=== PATIENT | male | born 1975 | race Caucasian/White ===

== ENCOUNTER 2019-01-26 11:08 | Inpatient (IN) | payer BC, OTHER ==
[~2019-01-26] VITALS: Ht 180.3 cm; Wt 114.5 kg
[2019-01-26] VITALS (30 sets, daily range): BP systolic 89–130; BP diastolic 45–100
[2019-01-26] MEDS ORDERED: ADENOSINE 6 MG/2 ML (ADENOCARD) VIAL IV ONE ×4 (11:21→11:45)
[2019-01-26] MEDS ORDERED: NS (IVPB) 0 ML ONE (11:26)
[2019-01-26] MEDS ORDERED: DILTIAZEM 125 MG/25 ML IV (CARDIZEM) IV ONE (11:26)
[2019-01-26] MEDS ORDERED: DILTIAZEM 25 MG/5 ML INJ (CARDIZEM) VIAL ONE (11:26)
[2019-01-26 11:41] LABS: BASOPHILS % (AUTO) 0 % (0-10); EOSINOPHILS # (AUTO) 0.1 10^3/uL (0.0-0.3); EOSINOPHILS % (AUTO) 1 % (0-10); HEMATOCRIT 45 % (40-54); LYMPHOCYTES # (AUTO) 3.6 X 10^3 (1.0-4.0); LYMPHOCYTES % (AUTO) 38 % (12-44); MEAN CORPUSCULAR HEMOGLOBIN 31 PG (25-34); MEAN CORPUSCULAR HGB CONC 36 G/DL (32-36); MEAN CORPUSCULAR VOLUME 87 FL (80-99); MONOCYTES # (AUTO) 1.3 X 10^3 (0.0-1.0); MONOCYTES % (AUTO) 13 % (0-12); NEUTROPHILS # (AUTO) 4.6 X 10^3 (1.8-7.8); NEUTROPHILS % (AUTO) 48 % (42-75); PLATELET COUNT 332 10^3/uL (130-400); RED CELL DISTRIBUTION WIDTH 12.5 % (10.0-14.5); WHITE BLOOD COUNT 9.5 10^3/uL (4.3-11.0)
[2019-01-26] MEDS ORDERED: NS IV 1000 ML 1,000 ML IV ONE (11:41)
[2019-01-26 11:43] LABS: INR 0.9 (0.8-1.4); PROTHROMBIN TIME PATIENT 12.1 SEC (12.2-14.7)
[2019-01-26] MEDS ORDERED: DILTIAZEM 125 MG/NS 100 ML IV SCH ×2 (11:45)
[2019-01-26] MEDS ORDERED: DILTIAZEM 25 MG/5 ML INJ (CARDIZEM) VIAL IV ONE (11:45)
[2019-01-26] MEDS ORDERED: DILTIAZEM 25 MG/5 ML INJ (CARDIZEM) VIAL IVP ONE (11:45)
[2019-01-26] MEDS ORDERED: DILTIAZEM INJECTION 125 MG in NS (IVPB) 100 ML IV SCH (11:45)
[2019-01-26 11:56] LABS: ALANINE AMINOTRANSFERASE 66 U/L (0-55); ALBUMIN 4.8 GM/DL (3.2-4.5); ALKALINE PHOSPHATASE 84 U/L (40-136); BILIRUBIN,TOTAL 1.1 MG/DL (0.1-1.0); BUN/CREATININE RATIO 11; CALCIUM 9.5 MG/DL (8.5-10.1); CARBON DIOXIDE 22 MMOL/L (21-32); CHLORIDE 106 MMOL/L (98-107); CREATININE SERUM 0.97 MG/DL (0.60-1.30); GFR ESTIMATED > 60; GLUCOSE 90 MG/DL (70-105); MAGNESIUM 2.4 MG/DL (1.8-2.4); POTASSIUM 3.7 MMOL/L (3.6-5.0); SODIUM 141 MMOL/L (135-145); TOTAL PROTEIN 7.2 GM/DL (6.4-8.2)
--- NOTE | 2019-01-26 11:57 | Diagnostic Imaging Report ---
Indication: Dizziness. Time of exam: 11:50 AM No prior studies are available for comparison. The heart size is normal. The pulmonary vascularity is unremarkable. The lungs are clear. No infiltrate, effusion or pneumothorax is detected. Impression: No acute cardiopulmonary process is detected. Dictated by: Dictated on workstation # [id number]
--- NOTE | 2019-01-26 12:00 | NUR ---
Cardizem titrated to 15 ml/hr per Dr. Nazario. Pt's HR approxiately 157 at this time.
[2019-01-26 12:05] LABS: MYOGLOBIN SERUM 64.2 NG/ML (10.0-92.0)
--- NOTE | 2019-01-26 12:34 | NUR ---
cardizem titrated to 20 ml/hr per Fransico Phelps.
--- NOTE | 2019-01-26 13:05 | ED Cardiac General ---
History of Present Illness General Chief Complaint: Dizziness/Syncope Stated Complaint: DIZZY, COLD SWEAT, LIGHT HEADED Nursing Triage Note: Ambulatory to rm 5. Pt c/o feeling dizzy and lightheaded for approximately 1.5 hrs [employer]. Pt also reports feeling dizzy and lightheaded when bending over for the past month. Upon hooking pt up to monitor pt's pulse was 206. Dr. Nazario in room. Source: patient, family Exam Limitations: no limitations History of Present Illness Date Seen by Provider: Jan 26, 2019 Time Seen by Provider: 11:15 Initial Comments This 43-year-old gentleman presents to the emergency room after having about an hour and a half of lightheadedness, shortness of breath, and tachycardia. He reports prior episodes of this that were brief and less intense. He was noted to have extreme tachycardia on the monitor during assessment. Heart rate was running about 100-200. He has no history of arrhythmia. Attempts at Valsalva did not improve his heart rate. He is a patient of the [facility] in [facility]. He also has had gastric bypass with Dr. Chavez. Allergies and Home Medications Allergies Uncoded Allergies: NSAIDS (Allergy, Unknown, 01/26/19) Pt reports being unable to take due to gastric bypass surgery Patient Home Medication List Home Medication List Reviewed: Yes Review of Systems Review of Systems Constitutional: no symptoms reported EENTM: No Symptoms Reported Respiratory: See HPI Cardiovascular: See HPI Gastrointestinal: No Symptoms Reported Genitourinary: No Symptoms Reported Musculoskeletal: no symptoms reported Skin: no symptoms reported Psychiatric/Neurological: No Symptoms Reported Endocrine: No Symptoms Reported Hematologic/Lymphatic: No Symptoms Reported Past Ngxhwvo-Meurop-Qsqott Hx Past Med/Social Hx: Reviewed and Corrections made Patient Social History Alcohol Use: Occasionally Uses Recreational Drug Use: No 2nd Hand Smoke Exposure: No Recent Foreign Travel: No Contact w/Someone Who Travel: No Recent Infectious Disease Expo: No Recent Hopitalizations: No Physical Abuse: No Sexual Abuse: No Seasonal Allergies Seasonal Allergies: No Past Medical History Surgeries: Yes (knee, gastric bypass) Abdominal (gastric bypass), Orthopedic Respiratory: No Cardiac: Yes Hypertension Neurological: No Reproductive Disorders: No Genitourinary: No Gastrointestinal: Yes (gastric bypass) Musculoskeletal: No Endocrine: No HEENT: No Cancer: No Psychosocial: Yes Anxiety, Depression Integumentary: No Blood Disorders: No Physical Exam Vital Signs Vital Signs - First Documented 01/26/19 11:17 Temp 96.1 Pulse 206 Resp 20 B/P (MAP) 130/51 (77) Pulse Ox 100 O2 Delivery Room Air O2 Flow Rate 2.00 Capillary Refill : Less Than 3 Seconds Height, Weight, BMI Height: 5'11.00" Weight: 250lbs. oz. 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 Norm as Tested Skin: Cool (and clammy), Pallor Progress/Results/Core Measures Results/Orders Lab Results Laboratory Tests Test 01/26/19 11:23 Range/Units White Blood Count 9.5 4.3-11.0 10^3/uL Red Blood Count 5.19 4.35-5.85 10^6/uL Hemoglobin 16.0 13.3-17.7 G/DL Hematocrit 45 40-54 % Mean Corpuscular Volume 87 80-99 FL Mean Corpuscular Hemoglobin 31 25-34 PG Mean Corpuscular Hemoglobin Concent 36 32-36 G/DL Red Cell Distribution Width 12.5 10.0-14.5 % Platelet Count 332 130-400 10^3/uL Mean Platelet Volume 10.0 7.4-10.4 FL Neutrophils (%) (Auto) 48 42-75 % Lymphocytes (%) (Auto) 38 12-44 % Monocytes (%) (Auto) 13 H 0-12 % Eosinophils (%) (Auto) 1 0-10 % Basophils (%) (Auto) 0 0-10 % Neutrophils # (Auto) 4.6 1.8-7.8 X 10^3 Lymphocytes # (Auto) 3.6 1.0-4.0 X 10^3 Monocytes # (Auto) 1.3 H 0.0-1.0 X 10^3 Eosinophils # (Auto) 0.1 0.0-0.3 10^3/uL Basophils # (Auto) 0.0 0.0-0.1 10^3/uL Prothrombin Time 12.1 L 12.2-14.7 SEC INR Comment 0.9 0.8-1.4 Activated Partial Thromboplast Time 29 24-35 SEC Sodium Level 141 135-145 MMOL/L Potassium Level 3.7 3.6-5.0 MMOL/L Chloride Level 106 98-107 MMOL/L Carbon Dioxide Level 22 21-32 MMOL/L Anion Gap 13 5-14 MMOL/L Blood Urea Nitrogen 11 7-18 MG/DL Creatinine 0.97 0.60-1.30 MG/DL Estimat Glomerular Filtration Rate > 60 BUN/Creatinine Ratio 11 Glucose Level 90 70-105 MG/DL Calcium Level 9.5 8.5-10.1 MG/DL Corrected Calcium 8.5-10.1 MG/DL Magnesium Level 2.4 1.8-2.4 MG/DL Total Bilirubin 1.1 H 0.1-1.0 MG/DL Aspartate Amino Transf (AST/SGOT) 38 H 5-34 U/L Alanine Aminotransferase (ALT/SGPT) 66 H 0-55 U/L Alkaline Phosphatase 84 40-136 U/L Myoglobin 64.2 10.0-92.0 NG/ML Troponin I < 0.028 <0.028 NG/ML Total Protein 7.2 6.4-8.2 GM/DL Albumin 4.8 H 3.2-4.5 GM/DL TSH [place] Testing 1.94 0.35-4.94 UIU/ML Micro Results Microbiology 01/26/19 Influenza Types A,B Antigen (RUBIA) - Final, Complete My Orders Orders - MAURILIO NAZARIO MD Influenza A And B Antigens (01/26/19 11:17) Adenosine Injection (Adenocard Injection (01/26/19 11:21) Adenosine Injection (Adenocard Injection (01/26/19 11:24) Ns (Ivpb) (Sodium Chloride 0.9% Ivpb Bag (01/26/19 11:26) Diltiazem Iv For Drip (Cardizem Iv For D (01/26/19 11:26) Diltiazem Injection (Cardizem Injection) (01/26/19 11:26) Cbc With Automated Diff (01/26/19 11:31) Magnesium (01/26/19 11:31) Chest 1 View, Ap/Pa Only (01/26/19 11:31) Ekg Tracing (01/26/19 11:31) Cardiac Profile 1 (01/26/19 11:31) Comprehensive Metabolic Panel (01/26/19 11:31) Myoglobin Serum (01/26/19 11:31) Protime With Inr (01/26/19 11:31) Partial Thromboplastin Time (01/26/19 11:31) O2 (01/26/19 11:31) Monitor-Rhythm Ecg Trace Only (01/26/19 11:31) Lipid Panel (01/27/19 06:00) Saline Lock/Iv-Start (01/26/19 11:31) Thyroid Analyzer (01/26/19 11:31) Adenosine Injection (Adenocard Injection (01/26/19 11:45) Adenosine Injection (Adenocard Injection (01/26/19 11:45) Ns (Ivpb) (Sodium C... W/Diltiazem Injec (01/26/19 11:45) Diltiazem Injection (Cardizem Injection) (01/26/19 11:45) Ns Iv 1000 Ml (Sodium Chloride 0.9%) (01/26/19 11:41) Apixaban Tablet (Eliquis Tablet) (01/26/19 13:15) Medications Given in ED Current Medications Medications Dose Ordered Sig/Manoj Route Start Time Stop Time Status Last Admin Dose Admin Adenosine 6 mg STK-MED ONCE IV 01/26/19 11:21 01/26/19 11:23 DC 01/26/19 11:23 12 MG Adenosine 6 mg STK-MED ONCE IV 01/26/19 11:24 01/26/19 11:26 DC 01/26/19 11:25 12 MG Apixaban 5 mg ONCE ONCE PO 01/26/19 13:15 01/26/19 13:16 DC 01/26/19 13:18 5 MG Diltiazem HCl 10 mg ONCE ONCE IV 01/26/19 11:45 01/26/19 11:46 DC 01/26/19 11:27 10 MG Sodium Chloride 1,000 ml @ 0 mls/hr Q0M ONCE IV 01/26/19 11:41 01/26/19 11:42 DC 01/26/19 12:05 1,000 MLS/HR Vital Signs/I&O 01/26/19 01/26/19 11:17 11:17 Temp 96.1 Pulse 206 Resp 20 B/P (MAP) 130/51 (77) Pulse Ox 100 100 O2 Delivery Room Air Nasal Cannula O2 Flow Rate 2.00 Blood Pressure Mean: 77 Progress Progress Note #1: Time: 13:16 Progress Note Patient was thought to have SVT given the narrow complex extreme tachycardia with heart rates in the 180-200 range. Valsalva maneuver did not affect his heart rate. Adenosine 12 mg had no effect on his heart rate initially. A repeat dose slowed his heart rate enough to reveal atrial fibrillation. He was then started on a Cardizem drip. He has been titrated up to 20 mg per hour. Heart rate is now fluctuating from the 90s to 130s. He is feeling much better. 1 L of IV fluids was infused. He will receive Eliquis for anticoagulation. Case was discussed with Dr. Rodriguez to requested admission on continued Cardizem drip. He also requested to add an amiodarone bolus and drip. Patient's arrived and brought his medications. She confirms he is still taking lisinopril but recently stopped atenolol. 2-D echocardiogram was also requested. Progress Note #2: Progress Note Dr. Rodriguez personally presented to the emergency room to assess the patient and reviewed EKGs. EKG #1: EKG Time: 11:22 Rate: 207 Comment Narrow complex tachycardia with slight irregularity to it suspicious for SVT or very rapid atrial fibrillation. No ischemic ST changes. EKG #2: EKG Time: 11:25 Rate: 113 Rhythm: A Fib/Flutter ECG Impression: Atrial Fibrillation w/RVR Comment EKG was obtained after administration of adenosine 12 mg. Heart rate slowed to reveal atrial fibrillation with RVR. No overt ischemic changes. Diagnostic Imaging Diagonstic Imaging: Xray Plain Films/CT/US/NM/MRI: chest Comments Chest x-ray viewed by me and report reviewed. See report below: NAME: SABRINA GOODMAN MED REC#: [id number] PT STATUS: REG ER : 1975 PHYSICIAN: MAURILIO NAZARIO MD ADMIT DATE: 01/26/19/ER Draft Date of Exam:01/26/19 CHEST 1 VIEW, AP/PA ONLY Indication: Dizziness. Time of exam: 11:50 AM No prior studies are available for comparison. The heart size is normal. The pulmonary vascularity is unremarkable. The lungs are clear. No infiltrate, effusion or pneumothorax is detected. Impression: No acute cardiopulmonary process is detected. Dictated on workstation # [id number] Dict: 01/26/19 1155 Trans: 01/26/19 1157 CV [id number] Interpreted by: PJ COUGHLIN MD Departure Communication (Admissions) Time/Spoke to Admitting Phy: 13:00 Dr. Cyr Time/Spoke to Consulting Phy: 13:04 Dr. Rodriguez Impression Primary Impression: Atrial fibrillation with RVR Disposition: 07 AGAINST MEDICAL ADVICE Condition: Improved Admissions Decision to Admit Reason: Admit from ER (General) Decision to Admit/Date: Jan 26, 2019 Time/Decision to Admit Time: 11:25 MAURILIO NAZARIO MD Jan 26, 2019 13:04
[2019-01-26] MEDS ORDERED: APIXABAN 5 MG (ELIQUIS) TABLET PO ONE (13:15)
--- NOTE | 2019-01-26 13:19 | NUR ---
Dr. Rodriguez in room with pt at this time.
--- NOTE | 2019-01-26 13:52 | NUR ---
SABRINA GOODMAN admitted to room CU6-1, with an admitting diagnosis of [place] A FIB W/ RVR, on 01/26/19 from ER via CART, accompanied by STAFF.SABRINA GOODMAN introduced to surroundings, call light, bed controls, phone, TV, temperature control, lights, meal times, smoking policy, visitor policy, side rail policy, bathrooms and showers. Patient Rights given to patient in the handbook. SABRINA GOODMAN verbalizes understanding that [facility] is not responsible for the loss or damage to any personal effects or valuables that are kept in the patients posession during their hospitalization. The following Patient Care Plans were discussed with the PT: Discharge Planning, INEFFECTIVE BREATHING PATTERN,KNOWLEDGE DEFICIT, and ANXIETY. SABRINA GOODMAN verbalizes understanding of Interdisciplinary Patient Education. Patient and family were informed about the Rapid Response Team and its purpose.
--- NOTE | 2019-01-26 13:55 | Consultation-Cardiology ---
HPI-Cardiology Cardiology Consultation: Date of Consultation 01/26/19 Date of Admission Attending Physician Sofía Cyr MD Admitting Physician Consulting Physician Chilo RODRIGUEZ MD HPI: Time Seen by a Provider: 13:00 Chief Complaint: Palpitation, near syncope This is a 43-year-old gentleman who has history of sleep apnea, morbid obesity, status post gastric bypass, hypertension who presented with tachycardia, shortness of breath and near syncope. He's had previous episodes however they were not that intense. The patient denies chest pain, lower extremity swelling. He was found to be in narrow complex tachycardia with mild cycle length irregularity. Adenosine 12 mg IV was given which did not terminate the arrhythmia. However the rate slowed down with Cardizem which showed likely atrial fibrillation. Review of Systems-Cardiology Review of Systems Constitutional: As described under HPI; No As described under HPI, No no symptoms reported, No chills, No fever; lightheadedness Eyes: No As described under HPI, No no symptoms reported, No blindness, No blurred vision, No contact lenses, No drainage, No decreased acuity, No foreign body sensation, No pain, No vision change Ears/Nose/Throat: No As described under HPI, No no symptoms reported, No chronic hearing loss, No ear discharge, No ear pain, No nasal drainage, No ulcerations Respiratory: No no symptoms reported; As described under HPI; No As described under HPI, No cough, No orthopnea; shortness of breath; No SOB with excertion Cardiovascular: No no symptoms reported; As described under HPI; No As described under HPI, No chest pain, No edema, No irregular heart rate, No lightheadedness; palpitations Gastrointestinal: No no symptoms reported, No As described under HPI, No abdomen distended, No abdominal pain, No blood streaked bowels, No constipation , No diarrhea, No nausea, No vomiting, No stool coloration changes Genitourinary: No As described under HPI, No burning, No dysuria, No discharge , No frequency, No flank pain, No hematuria, No urgency Skin: No rash, No skin related problems, No ulcerations Psychiatric/Neurological: No anxiety, No depression, No seizure, No focal weakness, No syncope Hematologic: No bleeding abnormalities SBQ-Cafsno-Badphh Hx Patient Social History Alcohol Use: Occasionally Uses Recreational Drug Use: No 2nd Hand Smoke Exposure: No Recent Foreign Travel: No Recent Infectious Disease Expo: No Hospitalization with Isolation: Denies Past Medical History PMH As described under Assessment. Allergies and Home Medications Allergies Uncoded Allergies: NSAIDS (Adverse Reaction, Unknown, 01/26/19) Pt reports being unable to take due to gastric bypass surgery Home Medications Biotin 10 Mg Tablet, 10 MG PO HS, (Reported) Buspirone HCl 7.5 Mg Tablet, 11.25 MG PO BID, (Reported) TAKES 1 & 1/2 (7.5MG) TABLET Cholecalciferol (Vitamin D3) 10,000 Unit Capsule, 10,000 UNIT PO HS, (Reported) Duloxetine HCl 30 Mg Capsule.dr, 30 MG PO BID, (Reported) Lisinopril 20 Mg Tablet, 20 MG PO BID, (Reported) Methylcellulose 500 Mg Tablet, 500 MG PO BID, (Reported) [Mtv W/Probiotic] , 1 TAB PO BID, (Reported) Patient Home Medication List Home Medication List Reviewed: Yes Physical Exam-Cardiology Physical Exam Vital Signs/I&O 01/26/19 01/26/19 01/26/19 01/26/19 11:17 11:17 13:38 13:52 Temp 96.1 96.1 Pulse 206 129 Resp 20 20 B/P (MAP) 130/51 (77) 112/89 (97) Pulse Ox 100 100 98 O2 Delivery Room Air Nasal Cannula Nasal Cannula Room Air O2 Flow Rate 2.00 0 01/26/19 01/26/19 01/26/19 01/26/19 13:55 14:01 14:15 14:30 Temp 97.2 Pulse 123 130 93 Resp 7 13 B/P (MAP) 127/96 (106) 113/85 (94) Pulse Ox 98 99 O2 Delivery Room Air Room Air 01/26/19 01/26/19 01/26/19 01/26/19 14:45 15:00 15:09 15:15 Pulse 100 103 92 Resp 15 14 16 B/P (MAP) 119/77 (91) 130/100 (110) 108/84 (92) Pulse Ox 98 97 98 O2 Delivery Room Air Room Air Room Air Room Air 01/26/19 01/26/19 01/26/19 01/26/19 15:30 15:45 16:00 16:12 Temp 97.1 Pulse 118 93 79 Resp 7 9 16 B/P (MAP) 121/90 (100) 108/69 (82) 110/89 (96) Pulse Ox 97 96 96 O2 Delivery Room Air Room Air Room Air 01/26/19 01/26/19 01/26/19 01/26/19 17:00 18:00 20:00 20:04 Temp 97.5 Pulse 70 71 Resp 12 11 B/P (MAP) 93/66 (75) 101/69 (80) Pulse Ox 95 95 O2 Delivery Room Air Room Air Room Air Room Air Capillary Refill : Less Than 3 Seconds Constitutional: appears stated age, AAO x 3; No apparent distress; well- developed, well-nourished HEENT: PERRL; No discharge; hearing is well preserved, oral hygience is good; No ulceration, No xanthelasmas are seen Neck: No non-tender, No full range of motion, No supple, No normal inspection, No carotid bruit, No limited range of motion, No lymphadenopathy (R), No lymphadenopathy (L), No tender lateral, No tender midline, No thyromegaly, No other; carotid pulses are 2 + bilaterally; No with good upstrokes Respiratory: No accessory muscle use, No respiratory distress, No chest tender , No chest expansion is symmetric; chest is bilaterally symmetric; No lungs clear to percussion; lungs clear to auscultation; No crackles, No rhonchi, No rales, No stridor, No wheezing, No pleural rub, No other Cardiovascular: No regular rate-rhythm; irregularly irregular; No extra beats, No parasternal heave is noted, No JVD, No edema, No bradycardia; tachycardia; No point of maximal impulse, No cardiac thrills are palpable; S1 and S2; No gallop/S3, No gallop/S4, No diastolic murmur, No systolic murmur, No friction rub, No click, No other Gastrointestinal: No tender, No soft, No round, No distended, No pulsatile mass , No organomegaly, No guarding, No rebound, No tenderness, No hernia, No mass, No audible bowel sounds, No abnormal bowel sounds, No abdominal bruits, No spleenomegaly, No other Rectal: deferred Extremities: No normal range of motion, No non-tender, No normal inspection, No pedal edema, No calf tenderness, No normal capillary refill, No pelvis stable , No calf tenderness, No inflammation, No pedal edema, No slow capillary refill , No swelling, No other, No abrasion, No clubbing, No cyanosis, No ecchymosis, No laceration, No no lower extremity edema bilateral, No significant edema, No tenderness, No wound Neurologic/Psychiatric: no motor/sensory deficits, alert, normal mood/affect, oriented x 3, power is 5/5 both on sides Skin: No rash, No ulcerations Data Review Labs Laboratory Tests 01/26/19 11:23: White Blood Count 9.5, Red Blood Count 5.19, Hemoglobin 16.0, Hematocrit 45, Mean Corpuscular Volume 87, Mean Corpuscular Hemoglobin 31, Mean Corpuscular Hemoglobin Concent 36, Red Cell Distribution Width 12.5, Platelet Count 332, Mean Platelet Volume 10.0, Neutrophils (%) (Auto) 48, Lymphocytes (%) (Auto) 38 , Monocytes (%) (Auto) 13H, Eosinophils (%) (Auto) 1, Basophils (%) (Auto) 0, Neutrophils # (Auto) 4.6, Lymphocytes # (Auto) 3.6, Monocytes # (Auto) 1.3H, Eosinophils # (Auto) 0.1, Basophils # (Auto) 0.0, Prothrombin Time 12.1L, INR Comment 0.9, Activated Partial Thromboplast Time 29, Sodium Level 141, Potassium Level 3.7, Chloride Level 106, Carbon Dioxide Level 22, Anion Gap 13, Blood Urea Nitrogen 11, Creatinine 0.97, Estimat Glomerular Filtration Rate > 60 , BUN/Creatinine Ratio 11, Glucose Level 90, Calcium Level 9.5, Corrected Calcium , Magnesium Level 2.4, Total Bilirubin 1.1H, Aspartate Amino Transf (AST /SGOT) 38H, Alanine Aminotransferase (ALT/SGPT) 66H, Alkaline Phosphatase 84, Myoglobin 64.2, Troponin I < 0.028, Total Protein 7.2, Albumin 4.8H, TSH [place] Testing 1.94 Microbiology 01/26/19 Influenza Types A,B Antigen (RUBIA) - Final, Complete ECG Impression ECG Initial ECG Impression: Atrial Fibrillation w/RVR A/P-Cardiology Assessment/Admission Diagnosis Atrial fibrillation with rapid ventricular rate, Narrow complex tachycardia, Hypertension, Sleep apnea, Elevated LFTs Plan Atrial fibrillation with rapid ventricular rate, Cardizem infusion, amiodarone infusion. Start Eliquis for oral anti-coagulation. I discussed at length with the patient and family. If the patient does not convert with amiodarone, the we 'll schedule transesophageal echocardiogram assisted cardioversion tomorrow. Narrow complex tachycardia, initial EKG showed narrow complex tachycardia with significantly elevated heart rate. Mild cycle length irregularity. Differentials included PSVT. No response to adenosine however the patient converted to atrial fibrillation on Cardizem. It is unclear whether the SVT degenerated into atrial fibrillation or it was atrial fibrillation all along which became slower with Cardizem. Hypertension, continue lisinopril, Sleep apnea, Elevated LFTs Thank you for your consultation. Please call me if you have any questions. Pebbles Rodriguez MD, FACP, FACC, FSCAI, FHRS, CCDS Interventional Cardiology Cardiac Electrophysiology Vascular Medicine and Endovascular Interventions Chilo RODRIGUEZ MD Jan 26, 2019 13:55
[2019-01-26] MEDS ORDERED: AMIODARONE 150 MG/D5W 100 ML BOLUS IV ONE ×2 (14:00)
[2019-01-26] MEDS ORDERED: DULO30CA48 PO (14:18)
[2019-01-26] MEDS ORDERED: BUSP7.5T5 PO (14:18)
[2019-01-26] MEDS ORDERED: CHROMIUM PO (14:18)
[2019-01-26] MEDS ORDERED: CHOL-6 PO (14:18)
[2019-01-26] MEDS ORDERED: LISI-552 PO (14:18)
[2019-01-26] MEDS ORDERED: BIOT10TA PO (14:18)
[2019-01-26] MEDS ORDERED: PROBIOTIC PO (14:21)
[2019-01-26] MEDS ORDERED: [UNRECOGNIZED DRUG - OTHER] PO (14:21)
[2019-01-26] MEDS ORDERED: METH500T5 PO (14:21)
[2019-01-26] MEDS: NS IV 1000 ML 1,000 ML IV SCH ×2 (14:25→22:32)
--- NOTE | 2019-01-26 14:25 | NUR ---
SPOKE WITH PATIENT AND FAMILY ABOUT HIS MEDICATIONS. THEY HAD THE BOTTLES WITH THEM WITH THE EXCEPTION OF CITRUCEL AND A MTV WITH A PROBIOTIC FOR GASTRIC BYPASS PATIENTS. HIS BUSPAR IS PRESCRIBED 2 TABS TID HOWEVER THEY STATE HE ONLY TAKES 1.5 TABS BID. IN ADDITION TO WHAT IS SHOWN ON THE EXT MED HX THEY HAD A BOTTLE OF DULOXETINE 30MG BID #60 FILLED 01-10-19 FROM [facility]. OTC MEDS INCLUDE: VITAMIN D3 10,000 UNITS HS BIOTIN 10MG HS CITRUCEL BID MTV W/ PROBIOTIC FOR GASTRIC BYPASS PATIENTS BID THEY HAD A BOTTLE OF CHROMIUM IN THE BAG HOWEVER THEY STATE THAT IS NOT ONE OF THE MEDICATIONS THE PATIENT IS TAKING AND IS IN THERE BY MISTAKE.
--- NOTE | 2019-01-26 14:27 | NUR ---
pharmacy called for med rec
[2019-01-26] MEDS: DILTIAZEM 125 MG/NS 100 ML IV SCH ×4 (14:28→17:25)
[2019-01-26] MEDS: AMIODARONE 450 MG/250 ML D5W EXCEL IV SCH ×4 (15:13→23:02)
--- NOTE | 2019-01-26 15:25 | History & Physical-Hospitalist ---
History of Present Illness HPI/Chief Complaint Pt is a 43yoCM with a PMH of HTN and morbid obesity s/p gastric bypass who presented to the ER due to lightheadedness and SOB. He states he was at work and suddenly felt his heart racing and thought he was going to pass out. He attempted to valsalva to help prevent him from passing out. He finished his job despite this and then presented to the ER for evaluation. He denies any history of heart problems, palpitations, thyroid disease, or arrhythmias. On arrival to the ER he was found to have a heart rate in the 180s. He was given adenosine that revealed underlying atrial fibrillation. He was started on a cardizem gtt with improvement in rate. He states with rate control his symptoms have resolved. Source: patient, RN/MD Exam Limitations: no limitations Date Seen 01/26/19 Time Seen by a Provider: 15:17 Attending Physician Ray Cyr MD PCP Referring Physician Date of Admission Jan 26, 2019 at 13:19 Home Medications & Allergies Home Medications Reviewed patient Home Medication Reconciliation performed by pharmacy medication reconciliations marine engineering technicians and/or nursing. Patients Allergies have been reviewed. Allergies Allergies Uncoded Allergies NSAIDS ( Allergy, Unknown, 01/26/19) Pt reports being unable to take due to gastric bypass surgery Past Zivudry-Axtxke-Dbfdlb Hx Past Med/Social Hx: Reviewed and Corrections made Patient Social History Marrital Status: Employed/Student: employed Alcohol Use: Occasionally Uses Recreational Drug Use: No Smoking Status: Never a Smoker 2nd Hand Smoke Exposure: No Recent Foreign Travel: No Contact w/other who traveled: No Recent Hopitalizations: No Recent Infectious Disease Expo: No Immunizations Up To Date Date of Influenza Vaccine: Nov 16, 2018 Seasonal Allergies Seasonal Allergies: No Past Medical History Surgeries: Abdominal (gastric bypass), Orthopedic Cardiac: Hypertension Reproductive: No Psychosocial: Anxiety, Depression History of Blood Disorders: No Family History Reviewed Nursing Family Hx Cardiovascular disease 19 MOTHER grandfather Diabetes mellitus 19 MOTHER Heart Disease Review of Systems Constitutional: No chills; dizziness; No fever Respiratory: No dyspnea on exertion, No orthopnea; short of breath Cardiovascular: No edema, No Hx of Intervention; palpitations; No syncope, No vascular heart diseas Gastrointestinal: No abdominal pain, No constipation, No diarrhea, No nausea, No vomiting Genitourinary: No dysuria, No frequency, No incontinence Musculoskeletal: no symptoms reported Skin: no symptoms reported Psychiatric/Neurological: No Symptoms Reported Physical Exam Physical Exam Vital Signs Vital Signs - First Documented 01/26/19 11:17 Temp 96.1 Pulse 206 Resp 20 B/P (MAP) 130/51 (77) Pulse Ox 100 O2 Delivery Room Air O2 Flow Rate 2.00 Capillary Refill : Less Than 3 Seconds Height, Weight, BMI Height: 5'11.00" Weight: 252lbs. 7.0oz. 114.159612ay; 35.2 BMI Method:Stated General Appearance: No Apparent Distress Eyes: Right Eye Normal Inspection, Right Eye PERRL HEENT: PERRL/EOMI, Normal ENT Inspection, Moist Mucous Membranes Neck: Non Tender, Supple Respiratory: Lungs Clear, No Accessory Muscle Use, No Respiratory Distress Cardiovascular: No Edema, No JVD, No Murmur, Normal Peripheral Pulses, Irregularly Irregular Gastrointestinal: Normal Bowel Sounds, No Pulsatile Mass, Non Tender, Soft Back: Normal Inspection, No CVA Tenderness, No Vertebral Tenderness Extremity: Normal Inspection, Normal Range of Motion, Non Tender, No Calf Tenderness, No Pedal Edema Neurologic/Psychiatric: Alert, Oriented x3, Normal Mood/Affect Skin: Normal Color, Warm/Dry Lymphatic: No Adenopathy Results Results/Procedures Labs Laboratory Tests 01/26/19 11:23 Patient resulted labs reviewed. Imaging: Reviewed Imaging Report Assessment/Plan Admission Diagnosis Atrial Fibrillation with RVR Admission Status: Inpatient Order (span 2 midnights) Reason for Inpatient Admission: On cardizem gtt Diagnosis/Problems Diagnosis/Problems (1) Atrial fibrillation with RVR Status: Acute Assessment & Plan: Currently on Cardizem gtt Echo ordered TSH normal Cardiology consulted, appreciate recs Eliquis ordered for anticoagulation for stroke prophylaxis CHADSVASC is 1- will discussed with cardiology about ASA vs Eliquis (2) Essential (primary) hypertension Assessment & Plan: Well controlled on current meds Clinical Quality Measures DVT/VTE Risk/Contraindication: Risk Factor Score Per Nursin RFS Level Per Nursing on Admit: 2=Moderate RAY CYR MD Jan 26, 2019 15:24
[2019-01-26] MEDS ORDERED: PATIENT MAY USE OWN MED,SINGLE MED PO SCH (16:45)
[2019-01-26] MEDS: DULoxetine 30 MG (CYMBALTA) CAP PO SCH (21:52)
[2019-01-26] MEDS: APIXABAN 5 MG (ELIQUIS) TABLET PO SCH (21:52)
[2019-01-26] MEDS: BUSPIRONE HCL 7.5 MG PO SCH (21:53)
[2019-01-27] VITALS (43 sets, daily range): BP systolic 87–132; BP diastolic 48–92
[2019-01-27] MEDS: NS IV 1000 ML 1,000 ML IV SCH ×2 (03:00→07:23)
[2019-01-27 03:57] LABS: BASOPHILS % (AUTO) 0 % (0-10); EOSINOPHILS # (AUTO) 0.1 10^3/uL (0.0-0.3); EOSINOPHILS % (AUTO) 2 % (0-10); HEMATOCRIT 42 % (40-54); HEMOGLOBIN 14.4 G/DL (13.3-17.7); LYMPHOCYTES # (AUTO) 2.4 X 10^3 (1.0-4.0); LYMPHOCYTES % (AUTO) 33 % (12-44); MEAN CORPUSCULAR HEMOGLOBIN 30 PG (25-34); MEAN CORPUSCULAR HGB CONC 34 G/DL (32-36); MEAN CORPUSCULAR VOLUME 88 FL (80-99); MEAN PLATELET VOLUME 10.3 FL (7.4-10.4); MONOCYTES # (AUTO) 0.8 X 10^3 (0.0-1.0); MONOCYTES % (AUTO) 11 % (0-12); NEUTROPHILS # (AUTO) 3.8 X 10^3 (1.8-7.8); NEUTROPHILS % (AUTO) 53 % (42-75); PLATELET COUNT 252 10^3/uL (130-400); RED CELL DISTRIBUTION WIDTH 12.4 % (10.0-14.5); WHITE BLOOD COUNT 7.1 10^3/uL (4.3-11.0)
[2019-01-27 04:26] LABS: BUN/CREATININE RATIO 11; CALCIUM 8.6 MG/DL (8.5-10.1); CARBON DIOXIDE 23 MMOL/L (21-32); CHLORIDE 107 MMOL/L (98-107); CHOLESTEROL 160 MG/DL (< 200); CREATININE SERUM 0.81 MG/DL (0.60-1.30); GFR ESTIMATED > 60; GLUCOSE 98 MG/DL (70-105); HDL CHOLESTEROL 42 MG/DL (40-60); MAGNESIUM 2.2 MG/DL (1.8-2.4); PHOSPHORUS 3.9 MG/DL (2.3-4.7); POTASSIUM 3.9 MMOL/L (3.6-5.0); SODIUM 140 MMOL/L (135-145); TRIGLYCERIDES 99 MG/DL (<150); VLDL CHOLESTEROL 20 MG/DL (5-40)
[2019-01-27] MEDS ORDERED: MAGNESIUM 1 GM/100 ML IVPB 100 ML IV SCH (06:00)
[2019-01-27] MEDS ORDERED: KCL 20 MEQ TAB (K-DUR) PO SCH (06:00)
[2019-01-27] MEDS ORDERED: POTASSIUM CL 10MEQ/50ML IVPB 50 ML IV SCH (06:00)
--- NOTE | 2019-01-27 07:11 | Pulmonary Consultation ---
History of Present Illness History of Present Illness Date of Consultation 01/27/19 07:04 Time Seen by Provider: 07:08 Date of Admission History of Present Illness 43yo with hx of HTN, morbid obesity s/p bariatric surgery, RAMOS presented to ED secondary to worsening SOB, palpitations, and presyncope. In the ED he was found to have Afib RVR with rate of 180's. Pt quit using his CPAP after loosing wt. He did not have a repeat PSG prior to discontinuation of CPAP. Allergies and Home Medications Allergies Uncoded Allergies: NSAIDS (Adverse Reaction, Unknown, 01/26/19) Pt reports being unable to take due to gastric bypass surgery Home Medications Biotin 10 Mg Tablet, 10 MG PO HS, (Reported) Buspirone HCl 7.5 Mg Tablet, 11.25 MG PO BID, (Reported) TAKES 1 & 1/2 (7.5MG) TABLET Cholecalciferol (Vitamin D3) 10,000 Unit Capsule, 10,000 UNIT PO HS, (Reported) Duloxetine HCl 30 Mg Capsule.dr, 30 MG PO BID, (Reported) Lisinopril 20 Mg Tablet, 20 MG PO BID, (Reported) Methylcellulose 500 Mg Tablet, 500 MG PO BID, (Reported) [Mtv W/Probiotic] , 1 TAB PO BID, (Reported) Past Grjbypp-Ubcnnv-Xlwqxw Hx Past Med/Social Hx: Reviewed and Corrections made Patient Social History Alcohol Use: Occasionally Uses Recreational Drug Use: No Smoking Status: Never a Smoker 2nd Hand Smoke Exposure: No Recent Foreign Travel: No Contact w/Someone Who Travel: No Recent Infectious Disease Expo: No Recent Hopitalizations: No Physical Abuse: No Sexual Abuse: No Immunizations Up To Date Date of Influenza Vaccine: Nov 16, 2018 Seasonal Allergies Seasonal Allergies: No Past Medical History Surgeries: Yes (knee, gastric bypass) Abdominal (gastric bypass), Orthopedic Respiratory: No Cardiac: Yes Hypertension Neurological: No Reproductive Disorders: No Genitourinary: No Gastrointestinal: Yes (gastric bypass) Musculoskeletal: No Endocrine: No HEENT: No Cancer: No Psychosocial: Yes Anxiety, Depression Integumentary: No Blood Disorders: No Family Medical History Reviewed Nursing Family Hx Cardiovascular disease 19 MOTHER grandfather Diabetes mellitus 19 MOTHER Heart Disease Sepsis Event Evaluation Height, Weight, BMI Height: 5'11.00" Weight: 252lbs. 7.0oz. 114.805880pg; 35.2 BMI Method:Stated Exam Exam Vital Signs Date Time Temp Pulse Resp B/P (MAP) Pulse Ox O2 Delivery O2 Flow Rate FiO2 01/27/19 06:30 58 15 107/68 (81) 97 Room Air 01/27/19 06:15 57 15 107/71 (83) 97 Room Air 01/27/19 06:00 53 15 97/67 (77) 95 Room Air 01/27/19 05:45 58 16 114/61 (78) 95 Room Air 01/27/19 05:30 62 16 97/84 (88) 95 Room Air 01/27/19 05:15 57 16 104/72 (83) 95 Room Air 01/27/19 05:00 61 17 106/66 (79) 95 Room Air 01/27/19 04:45 61 16 108/62 (77) 96 Room Air 01/27/19 04:30 60 17 111/67 (82) 95 Room Air 01/27/19 04:15 56 16 100/69 (79) 94 Room Air 01/27/19 04:00 61 16 87/48 (61) 95 Room Air 01/27/19 04:00 Room Air 01/27/19 03:30 69 10 106/71 (83) 97 Room Air 01/27/19 03:15 63 14 113/70 (84) 96 Room Air 01/27/19 03:00 62 11 109/65 (80) 98 Room Air 01/27/19 02:45 89 14 109/87 (94) 97 Room Air 01/27/19 02:30 69 16 90/59 (69) 96 Room Air 01/27/19 02:15 57 12 100/53 (69) 96 Room Air 01/27/19 02:00 62 12 92/52 (65) 96 Room Air 01/27/19 01:45 68 16 103/64 (77) 96 Room Air 01/27/19 01:30 66 16 107/57 (74) 95 Room Air 01/27/19 01:15 86 21 107/75 (86) 95 Room Air 01/27/19 01:00 74 01/27/19 01:00 87 14 110/68 (82) 98 Room Air 01/27/19 00:45 65 18 108/74 (85) 95 Room Air 01/27/19 00:30 67 26 110/68 (82) 94 Room Air 01/27/19 00:15 67 15 113/58 (76) 95 Room Air 01/27/19 00:00 Room Air 01/27/19 00:00 68 11 114/70 (85) 95 Room Air 01/26/19 23:45 65 17 110/72 (85) 94 Room Air 01/26/19 23:45 Room Air 01/26/19 23:30 56 14 108/69 (82) 94 Room Air 01/26/19 23:15 60 20 108/61 (77) 95 Room Air 01/26/19 23:00 61 8 98/62 (74) 95 Room Air 01/26/19 22:45 61 15 109/65 (80) 95 Room Air 01/26/19 22:30 65 12 110/71 (84) 95 Room Air 01/26/19 22:15 70 13 109/64 (79) 95 Room Air 01/26/19 22:00 58 16 105/70 (82) 96 Room Air 01/26/19 21:45 73 17 90/45 (60) 96 Room Air 01/26/19 21:30 65 19 89/67 (74) 95 Room Air 01/26/19 21:15 75 17 103/62 (76) 95 Room Air 01/26/19 21:00 75 23 116/66 (83) 94 Room Air 01/26/19 20:45 82 35 110/62 (78) 96 Room Air 01/26/19 20:30 70 12 105/69 (81) 96 Room Air 01/26/19 20:15 75 13 112/72 (85) 96 Room Air 01/26/19 20:04 97.5 Room Air 01/26/19 20:00 69 17 104/66 (79) 95 Room Air 01/26/19 20:00 Room Air 01/26/19 19:45 78 16 107/80 (89) 97 Room Air 01/26/19 19:30 72 20 101/67 (78) 96 Room Air 01/26/19 19:15 69 18 103/68 (80) 96 Room Air 01/26/19 19:00 61 01/26/19 19:00 75 13 102/58 (73) 96 Room Air 01/26/19 18:00 71 11 101/69 (80) 95 Room Air 01/26/19 17:00 70 12 93/66 (75) 95 Room Air 01/26/19 16:12 97.1 01/26/19 16:00 79 16 110/89 (96) 96 Room Air 01/26/19 15:45 93 9 108/69 (82) 96 Room Air 01/26/19 15:30 118 7 121/90 (100) 97 Room Air 01/26/19 15:15 92 16 108/84 (92) 98 Room Air 01/26/19 15:09 Room Air 01/26/19 15:00 103 14 130/100 (110) 97 Room Air 01/26/19 14:45 100 15 119/77 (91) 98 Room Air 01/26/19 14:30 93 13 113/85 (94) 99 Room Air 01/26/19 14:15 130 7 127/96 (106) 98 Room Air 01/26/19 14:01 123 01/26/19 13:55 97.2 01/26/19 13:52 Room Air 01/26/19 13:38 96.1 129 20 112/89 (97) 98 Nasal Cannula 0 01/26/19 11:17 100 Nasal Cannula 2.00 01/26/19 11:17 96.1 206 20 130/51 (77) 100 Room Air I & O 01/27/19 07:00 Intake Total 1718 ml Output Total 450 ml Balance 1268 ml Height & Weight Height: 5'11.00" Weight: 252lbs. 7.0oz. 114.517786gr; 35.2 BMI Method:Stated General Appearance: No Apparent Distress HEENT: PERRL/EOMI, Normal ENT Inspection, Moist Mucous Membranes Neck: Non Tender, Supple Respiratory: Lungs Clear, No Accessory Muscle Use, No Respiratory Distress Cardiovascular: No Edema, No JVD, No Murmur, Normal Peripheral Pulses, Irregularly Irregular Capillary Refill: Less Than 3 Seconds Extremity: Normal Inspection, Normal Range of Motion, Non Tender, No Calf Tenderness, No Pedal Edema Neurologic/Psychiatric: Alert, Oriented x3, Normal Mood/Affect Skin: Normal Color, Warm/Dry Lymphatic: No Adenopathy Results Lab Laboratory Tests 01/26/19 11:23 01/27/19 03:35 Assessment/Plan Assessment/Plan Afib RVR -Amio gtt currently -Echo -Cardiology following -Eliquis Hx of RAMOS -Pt stopped using his CPAP after loosing from bariatric surgery -I explained to patient he needs repeat PSG to ensure he does not still have RAMOS. Pt is agreeable to PSG -Will order PSG as out outpatient -His home CPAP machine is about 15yrs old HTN hx HANSEL DOTY DO Jan 27, 2019 07:11
--- NOTE | 2019-01-27 07:43 | Diagnostic Imaging Report ---
INDICATION: Shortness of breath. Portable chest 2:38 a.m. Heart size and pulmonary vascularity are normal. Lungs are clear. There are no effusions or pneumothoraces. IMPRESSION: Negative chest. Dictated by: Dictated on workstation # [id number]
--- NOTE | 2019-01-27 08:19 | Progress Note-Hospitalist ---
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 He states he was at work and suddenly felt his heart racing and thought he was going to pass out. He attempted to valsalva to help prevent him from passing out. He finished his job despite this and then presented to the ER for evaluation. He denies any history of heart problems, palpitations, thyroid disease, or arrhythmias. On arrival to the ER he was found to have a heart rate in the 180s. He was given adenosine that revealed underlying atrial fibrillation. He was started on a cardizem gtt with improvement in rate. He states with rate control his symptoms have resolved. Subjective/Events-last exam Pt reports feeling well. No chest pain or palpitations. Converted to sinus rhythm this AM. Objective Exam Vital Signs Vital Signs Date Time Temp Pulse Resp B/P (MAP) Pulse Ox O2 Delivery O2 Flow Rate FiO2 01/27/19 14:00 85 12 131/68 (89) 98 Room Air 01/26/19 20:04 97.5 01/26/19 13:38 0 Capillary Refill : Less Than 3 Seconds General Appearance: No Apparent Distress Respiratory: Lungs Clear, No Accessory Muscle Use, No Respiratory Distress Cardiovascular: Regular Rate, Rhythm, No Edema, No JVD, No Murmur Gastrointestinal: Normal Bowel Sounds, No Pulsatile Mass, Non Tender, Soft Back: Normal Inspection, No CVA Tenderness, No Vertebral Tenderness Extremity: No Calf Tenderness, No Pedal Edema Neurologic/Psychiatric: Alert, Oriented x3, Normal Mood/Affect Results/Procedures Lab Laboratory Tests 01/27/19 03:35 Patient resulted labs reviewed. Imaging: Reviewed Imaging Report Assessment/Plan Assessment and Plan Assess & Plan/Chief Complaint a-fib with RVR Diagnosis/Problems Diagnosis/Problems (1) Atrial fibrillation with RVR Status: Acute Assessment & Plan: Currently on amiodarone gtt Converted this AM to sinus Echo pending TSH normal Cardiology consulted, appreciate recs Eliquis from stroke ppx (2) Essential (primary) hypertension Assessment & Plan: Well controlled on current meds (3) RAMOS (obstructive sleep apnea) Assessment & Plan: Was previously on CPAP prior to gastric bypass and 130lb weight loss Will need outpatient follow up Clinical Quality Measures DVT/VTE Risk/Contraindication: Risk Factor Score Per Nursin RFS Level Per Nursing on Admit: 2=Moderate RAY DURON MD Jan 27, 2019 08:19
[2019-01-27] MEDS: APIXABAN 5 MG (ELIQUIS) TABLET PO SCH (10:24)
[2019-01-27] MEDS: BUSPIRONE HCL 7.5 MG PO SCH (10:24)
[2019-01-27] MEDS: DULoxetine 30 MG (CYMBALTA) CAP PO SCH (10:24)
--- NOTE | 2019-01-27 11:17 | Cardiology Progress Note ---
Cardiology SOAP Progress Note Subjective: Converted to sinus rhythm this morning. Objective: I&O/Vital Signs 01/27/19 01/27/19 01/27/19 01/27/19 05:45 06:00 06:15 06:30 Pulse 58 53 57 58 Resp 16 15 15 15 B/P (MAP) 114/61 (78) 97/67 (77) 107/71 (83) 107/68 (81) Pulse Ox 95 95 97 97 O2 Delivery Room Air Room Air Room Air Room Air 01/27/19 01/27/19 01/27/19 01/27/19 06:45 07:00 07:00 07:15 Pulse 56 62 59 55 Resp 11 12 B/P (MAP) 112/70 (84) 108/75 (86) 113/65 (81) Pulse Ox 96 98 97 O2 Delivery Room Air Room Air Room Air 01/27/19 01/27/19 01/27/19 01/27/19 07:30 07:45 08:00 08:00 Pulse 60 60 54 B/P (MAP) 110/73 (85) 116/76 (89) 92/63 (73) Pulse Ox 98 97 11 O2 Delivery Room Air Room Air Room Air Room Air 01/27/19 01/27/19 01/27/19 01/27/19 08:15 08:30 08:45 09:00 Pulse 71 54 60 52 Resp 9 13 15 15 B/P (MAP) 121/76 (91) 108/74 (85) 121/70 (87) 101/54 (70) Pulse Ox 99 94 96 96 O2 Delivery Room Air Room Air Room Air Room Air 01/27/19 01/27/19 01/27/19 01/27/19 10:00 11:00 12:00 12:00 Pulse 53 70 54 Resp 12 11 11 B/P (MAP) 117/76 (90) 112/72 (85) 116/74 (88) Pulse Ox 95 97 97 O2 Delivery Room Air Room Air Room Air Room Air 01/27/19 01/27/19 01/27/19 01/27/19 13:00 13:00 14:00 15:00 Pulse 77 64 85 78 Resp 13 12 B/P (MAP) 121/92 (102) 131/68 (89) 126/72 (90) Pulse Ox 96 98 O2 Delivery Room Air Room Air Room Air 01/27/19 15:33 Pulse 76 Resp 11 B/P (MAP) 132/68 Pulse Ox 97 O2 Delivery Room Air 01/27/19 00:00 Intake Total 1718 ml Output Total 450 ml Balance 1268 ml Weight (Pounds): 252 Weight (Ounces): 7.0 Weight (Calculated Kilograms): 114.121660 Constitutional: appears stated age, AAO x 3; No apparent distress; well- developed, well-nourished Respiratory: No accessory muscle use, No respiratory distress, No chest tender , No chest expansion is symmetric; chest is bilaterally symmetric; No lungs clear to percussion; lungs clear to auscultation; No crackles, No rhonchi, No rales, No stridor, No wheezing, No pleural rub, No other Cardiovascular: No regular rate-rhythm; irregularly irregular; No extra beats, No parasternal heave is noted, No JVD, No edema, No bradycardia; tachycardia; No point of maximal impulse, No cardiac thrills are palpable; S1 and S2; No gallop/S3, No gallop/S4, No diastolic murmur, No systolic murmur, No friction rub, No click, No other Gastrointestional: No tender, No soft, No round, No distended, No pulsatile mass, No organomegaly, No guarding, No rebound, No tenderness, No hernia, No mass, No audible bowel sounds, No abnormal bowel sounds, No abdominal bruits, No spleenomegaly, No other Extremities: No normal range of motion, No non-tender, No normal inspection, No pedal edema, No calf tenderness, No normal capillary refill, No pelvis stable , No calf tenderness, No inflammation, No pedal edema, No slow capillary refill , No swelling, No other, No abrasion, No clubbing, No cyanosis, No ecchymosis, No laceration, No no lower extremity edema bilateral, No significant edema, No tenderness, No wound Neurologic/Psychiatric: no motor/sensory deficits, alert, normal mood/affect, oriented x 3, power is 5/5 both on sides Skin: No rash, No ulcerations Results/Procedures: Labs Laboratory Tests 01/27/19 03:35: White Blood Count 7.1, Red Blood Count 4.73, Hemoglobin 14.4, Hematocrit 42, Mean Corpuscular Volume 88, Mean Corpuscular Hemoglobin 30, Mean Corpuscular Hemoglobin Concent 34, Red Cell Distribution Width 12.4, Platelet Count 252, Mean Platelet Volume 10.3, Neutrophils (%) (Auto) 53, Lymphocytes (%) (Auto) 33 , Monocytes (%) (Auto) 11, Eosinophils (%) (Auto) 2, Basophils (%) (Auto) 0, Neutrophils # (Auto) 3.8, Lymphocytes # (Auto) 2.4, Monocytes # (Auto) 0.8, Eosinophils # (Auto) 0.1, Basophils # (Auto) 0.0, Sodium Level 140, Potassium Level 3.9, Chloride Level 107, Carbon Dioxide Level 23, Anion Gap 10, Blood Urea Nitrogen 9, Creatinine 0.81, Estimat Glomerular Filtration Rate > 60, BUN/ Creatinine Ratio 11, Glucose Level 98, Calcium Level 8.6, Phosphorus Level 3.9, Magnesium Level 2.2, Triglycerides Level 99, Cholesterol Level 160, LDL Cholesterol Direct 105, VLDL Cholesterol 20, HDL Cholesterol 42 Microbiology 01/26/19 MRSA Screen - Final, Complete MRSA not isolated A/P: Assessment/Dx: Atrial fibrillation with rapid ventricular rate, Narrow complex tachycardia, Hypertension, Sleep apnea, Elevated LFTs Plan: Atrial fibrillation with rapid ventricular rate, converted to sinus rhythm this morning. Change Cardizem to Cardizem CD 120 mg. DC amiodarone. Oral anticoagulation therapy. Narrow complex tachycardia, initial EKG showed narrow complex tachycardia with significantly elevated heart rate. Mild cycle length irregularity. Differentials included PSVT. No response to adenosine however the patient converted to atrial fibrillation on Cardizem. It is unclear whether the SVT degenerated into atrial fibrillation or it was atrial fibrillation all along which became slower with Cardizem. Hypertension, continue lisinopril, Sleep apnea, Elevated LFTs Thank you for your consultation. Please call me if you have any questions. Pebbles Rodriguez MD, FACP, FACC, FSCAI, FHRS, CCDS Interventional Cardiology Cardiac Electrophysiology Vascular Medicine and Endovascular Interventions Chilo RODRIGUEZ MD Jan 27, 2019 11:17
[2019-01-27] MEDS ORDERED: DILTIAZEM 120 MG (CARDIZEM CD) CAP PO SCH (12:00)
[2019-01-27] MEDS ORDERED: APIX5TAB PO (13:04)
[2019-01-27] MEDS ORDERED: DILT120C94 PO (13:04)
--- NOTE | 2019-01-27 13:10 | Discharge Inst-Simple/Standard ---
Discharge Inst-Standard Discharge Medications New, Converted or Re-Newed RX: Transmitted to Pharmacy Patient Instructions/Follow Up Plan of Care/Instructions/FU: Please continue to take your medications as written. Please follow up with You PCP Ashely Ward and with Dr Rodriguez and Dr Nolen as scheduled. Activity as Tolerated: Yes Discharge Diet: Cardiac Diet Return to The Hospital For: Chest pain, shortness of breath, palpitations, bloody stools, syncope, if you feel you are getting worse. RAY DURON MD Jan 27, 2019 13:10
--- NOTE | 2019-01-27 13:15 | Discharge Summary-Hospitalist ---
Diagnosis/Chief Complaint Date of Admission Jan 26, 2019 at 13:19 Date of Discharge Discharge Date: Jan 27, 2019 Admission Diagnosis Atrial Fibrillation with RVR Discharge Diagnosis (1) Atrial fibrillation with RVR Status: Acute Assessment & Plan: Treated with amiodarone gtt Converted this AM to sinus Echo shows preserved EF and no valvular abnormalities TSH normal Cardiology consulted, appreciate recs Eliquis from stroke ppx (2) Essential (primary) hypertension Assessment & Plan: Well controlled on current meds (3) RAMOS (obstructive sleep apnea) Assessment & Plan: Was previously on CPAP prior to gastric bypass and 130lb weight loss Will need outpatient follow up Discharge Summary Procedures/Consulations Dr Rodriguez- Cardiology Dr Nolen- Pulm Discharge Physical Exam Allergies: Uncoded Allergies: NSAIDS (Adverse Reaction, Unknown, 01/26/19) Pt reports being unable to take due to gastric bypass surgery Vitals & I&Os Vital Signs Date Time Temp Pulse Resp B/P (MAP) Pulse Ox O2 Delivery O2 Flow Rate FiO2 01/27/19 15:33 76 11 132/68 97 Room Air 01/26/19 20:04 97.5 01/26/19 13:38 0 General Appearance: No Apparent Distress, WD/WN Cardiovascular: Regular Rate, Rhythm, No Murmur Neurologic/Psychiatric: Alert, Oriented x3 Hospital Course Pt was admitted to the ICU for new onset atrial fibrillation with RVR. He has a rate of 180 on arrival and adenosine failed to convert him but did reveal a-fib when the rate slowed. He required cardizem at first to slow rate and was switched to amiodarone gtt. He converted to NSR on the day of discharge and was discharged home with diltiazem for rate control and Eliquis for anticoagulation. He is to follow up with Dr Rodriguez to follow up this hospital stay. Dr Rodriguez wrote for an event monitor as well. He is also to follow up with Dr Nolen for outpatient PSG for RAMOS. Labs (last 24 hrs) Microbiology 01/26/19 MRSA Screen - Final, Complete MRSA not isolated Patient resulted labs reviewed. Imaging: Reviewed Imaging Report Discussion & Recommendations Discharge Planning: >30 minutes discharge planning Discharge Home Medications: Active Scripts Active Diltiazem 24Hr Cd (Diltiazem HCl) 120 Mg Cap.er.24h 120 Mg PO DAILY Eliquis (Apixaban) 5 Mg Tablet 5 Mg PO BID Reported [Mtv W/Probiotic] 1 Tab PO BID Citrucel (Methylcellulose) 500 Mg Tablet 500 Mg PO BID Biotin 10 Mg Tablet 10 Mg PO HS Vitamin D3 (Cholecalciferol (Vitamin D3)) 10,000 Unit Capsule 10,000 Unit PO HS Duloxetine HCl 30 Mg Capsule.dr 30 Mg PO BID Buspirone HCl 7.5 Mg Tablet 11.25 Mg PO BID TAKES 1 & 1/2 (7.5MG) TABLET Instructions to patient/family Please see electronic discharge instructions given to patient. Clinical Quality Measures DVT/VTE Risk/Contraindication: Risk Factor Score Per Nursin RFS Level Per Nursing on Admit: 2=Moderate RAY DURON MD Jan 27, 2019 13:15
== END 2019-01-27 15:13 | disposition home or self-care (01) | DRG 310 ==
LOC: ER 11:15 → ICU 13:19
PROVIDERS: ADMIT Family Medicine; ATTEND Family Medicine
DX: I48.91 Unspecified atrial fibrillation (principal); I10 Essential (primary) hypertension; G47.33 Obstructive sleep apnea (adult) (pediatric); R00.0 Tachycardia, unspecified; R74.8 Abnormal levels of other serum enzymes; F41.9 Anxiety disorder, unspecified; F32.9 Major depressive disorder, single episode, unspecified; E66.01 Morbid (severe) obesity due to excess calories; Z68.35 Body mass index [BMI] 35.0-35.9, adult; Z98.84 Bariatric surgery status
CPT/HCPCS: 36415; 71045; 80048; 80053; 80061; 83735; 83874; 84100; 84443; 84484; 85025; 85610; 85730; 87081; 87804; 93005; 93041; 93306

== ENCOUNTER 2019-01-27 15:20 | Outpatient (RCR) | payer BC ==
[~2019-01-27 15:20] MED LIST: APIX5TAB PO; BIOT10TA PO; BUSP7.5T5 PO; CHOL-6 PO; CHROMIUM PO; DILT120C94 PO; DULO30CA48 PO; LISI-552 PO; METH500T5 PO; PROBIOTIC PO; [UNRECOGNIZED DRUG - OTHER] PO
== END 2019-04-27 | disposition home or self-care (01) ==
LOC: CARD 15:20
PROVIDERS: ATTEND Internal Medicine Interventional Cardiology
DX: I48.1 Persistent atrial fibrillation (principal)
CPT/HCPCS: 93270

== ENCOUNTER → 2019-03-10 | Day surgery (SDC) | payer BC ==
[~2019-03-10] VITALS: Ht 180.3 cm; Wt 113.4 kg
[~2019-03-10] MED LIST changes: +LIDOCAINE 1% INJ 20 ML 20 ML VIAL ONE
[2019-03-10 07:39] VITALS: BP 175/100
--- NOTE | 2019-03-10 10:20 | Implantation of Loop Monitor ---
Implant of Loop Monitior PROCEDURE PHYSICIAN: Pebbles Rodriguez MD IMPLANTATION OF LOOP MONITOR REPORT DATE OF PROCEDURE: 03/10/19 ATTENDING PHYSICIAN: Dr. Syed Rodriguez. REFERRING PHYSICIAN: PERFORMING PHYSICIAN: Dr. Syed Rodriguez. INDICATION: Long-term surveillance of atrial fibrillation PREOP DIAGNOSIS: Long-term surveillance of atrial fibrillation POSTOP DIAGNOSIS: Paroxysmal Atrial fibrillation, s/p implantation of loop recorder. PROCEDURE DETAILS: The patient is a 43 male with history of paroxysmal atrial fibrillation requiring long-term surveillance. Therefore implantable loop recorder was discussed and agreed with the patient. Informed consent was taken. All risks and complications were discussed at length. The patient was draped and prepped in the usual sterile fashion. Local anesthesia was lidocaine, which was given in the substernal area close to the 4th intercostal space. Loop monitor was implanted according to the protocol. Steri-Strips were placed at the end of the procedure. There were no complications and the patient tolerated the procedure well. The device was interrogated with a voltage of 0.71 mV. ANESTHESIA: Local anesthesia with lidocaine. COMPLICATIONS: None CONTRAST/FLUOROSCOPY: None CONCLUSION: 1. Successful implantation of loop monitor for visual atrial fibrillation. 2. No complication and the patient tolerated the procedure well. Pebbles Rodriguez MD, RS, CCDS Cardiac Electrophysiology Chilo RODRIGUEZ MD Mar 10, 2019 10:20 am
== END | disposition home or self-care (01) ==
LOC: CATH 07:03
PROVIDERS: ATTEND Internal Medicine Interventional Cardiology
DX: I48.0 Paroxysmal atrial fibrillation (principal); I10 Essential (primary) hypertension; G47.30 Sleep apnea, unspecified; E66.9 Obesity, unspecified; Z68.34 Body mass index [BMI] 34.0-34.9, adult; Z98.84 Bariatric surgery status; Z79.01 Long term (current) use of anticoagulants; Z79.899 Other long term (current) drug therapy
CPT/HCPCS: 33285

== ENCOUNTER 2020-01-09 09:10 | Day surgery (SDC) | payer BC, OTHER ==
[2020-01-09] VITALS (9 sets, daily range): BP systolic 146–174; BP diastolic 93–112
[~2020-01-09] VITALS: Ht 182.9 cm; Wt 113.6 kg
[~2020-01-09 09:10] MED LIST changes: +DILT120C88 PO; -DILT120C94 PO; -DULO30CA48 PO; +DULO30CA49 PO; -LIDOCAINE 1% INJ 20 ML 20 ML VIAL ONE
[2020-01-09] MEDS ORDERED: NS IV 1000 ML 1,000 ML IV SCH (09:13)
[2020-01-09] MEDS ORDERED: NS IV 1000 ML 1,000 ML ONE ×2 (09:15→13:44)
[2020-01-09] MEDS ORDERED: LIDOCAINE 1% INJ 20 ML 20 ML VIAL ONE (09:15)
[2020-01-09] MEDS ORDERED: HEParin (CATH LAB) 1,000 ML IV ONE (09:15)
[2020-01-09] MEDS ORDERED: ISOPROTERENOL 0.2 MG/D5W 50 ML IV ONE (09:15)
[2020-01-09 09:43] LABS: HEMOGLOBIN 14.8 G/DL (13.3-17.7); MEAN PLATELET VOLUME 9.9 FL (7.4-10.4); RED CELL DISTRIBUTION WIDTH 12.8 % (10.0-14.5); WHITE BLOOD COUNT 8.1 10^3/uL (4.3-11.0)
[2020-01-09 09:56] LABS: INR 0.9 (0.8-1.4); PROTHROMBIN TIME PATIENT 12.7 SEC (12.2-14.7)
[2020-01-09 10:03] LABS: ALANINE AMINOTRANSFERASE 47 U/L (0-55); ALBUMIN 4.5 GM/DL (3.2-4.5); ALKALINE PHOSPHATASE 92 U/L (40-136); BILIRUBIN,TOTAL 1.1 MG/DL (0.1-1.0); BUN/CREATININE RATIO 10; CALCIUM 9.2 MG/DL (8.5-10.1); CARBON DIOXIDE 29 MMOL/L (21-32); CHLORIDE 103 MMOL/L (98-107); CREATININE SERUM 0.99 MG/DL (0.60-1.30); GFR ESTIMATED > 60; GLUCOSE 88 MG/DL (70-105); POTASSIUM 3.4 MMOL/L (3.6-5.0); SODIUM 142 MMOL/L (135-145)
[2020-01-09] MEDS ORDERED: CETI10CA PO (10:20)
[2020-01-09] MEDS ORDERED: AMLO5TAB4 PO (10:20)
[2020-01-09] MEDS ORDERED: BUSP7.5T5 PO (10:20)
[2020-01-09] MEDS ORDERED: ASTRAGALUS PO (10:20)
[2020-01-09] MEDS ORDERED: TMSL.4C PO (10:20)
[2020-01-09] MEDS ORDERED: proPOfol 200 MG/20 ML (DIPRIVAN) VIAL IV ONE (11:39)
[2020-01-09] MEDS ORDERED: fentaNYL INJECTION 100 MCG/2 ML AMP ONE (11:40)
[2020-01-09] MEDS ORDERED: LIDOCAINE 2% 20 ML (XYLOCAINE) VIAL ONE (11:40)
[2020-01-09] MEDS ORDERED: MIDAZOLAM 2 MG/2 ML (VERSED) VIAL ONE ×3 (11:40→13:53)
[2020-01-09] MEDS ORDERED: PROPOFOL DRIP (ICU) 100 ML IV ONE ×3 (12:15→14:15)
[2020-01-09] MEDS ORDERED: morphine INJ 10 MG/ML 1ML (SYR OR VIAL) ONE (14:02)
--- NOTE | 2020-01-09 15:25 | Electrophysiology Procedure ---
EP Procedure DATE OF SERVICE:01/09/20 PSVT ablation CARDIAC SILK SNAPPER: Pebbles Rodriguez MD, [facility] INDICATION: PSVT PREOPERATIVE DIAGNOSIS: PSVT POSTOPERATIVE DIAGNOSES: AVNRT, s/p successful ablation HISTORY: This is a 44 year old male with recurrent palpitations and PSVT. The patient is planned for comprehensive EP study and ablation. PROCEDURE PERFORMED: 1. Comprehensive EP study with induction. 2. Fluoroscopy. 3. Left atrial pacing and recording 4. Drug infusion. 5. Ablation of typical AVNRT 6. Comprehensive 3D mapping with the carto system. COMPLICATION: None. ESTIMATED BLOOD LOSS: 10 mL. CONTRAST USED: None. FLUOROSCOPY TIME: FLUOROSCOPY DOSE: 126 mgy. SPECIMENS: None. ANESTHESIA: Done by our anesthesia colleagues. ANTICOAGULATION: None PROCEDURE IN DETAIL: After informed consent was taken, the patient was brought to the EP lab. Anesthesia was provided by our anesthesia colleagues. The patient was draped and prepped in the usual sterile fashion. The patient presented to the EP lab in sinus rhythm. Access was gained in the right femoral vein with a 6-Central African and an 8-Central African sheath. Left access in left femoral vein was gained with 5-Central African and 6-Central African sheath respectively. High right atrial catheter was a Mindy catheter, right ventricular catheter was placed, his catheter and the CS catheter were also placed. A comprehensive EP study was done including left atrial pacing and recording, which ruled out a left lateral bypass tract. Typical atrial flutter was not induced with rapid atrial pacing with and without Isuprel infusion. A 3D electroanatomic mapping was donewith the carto system. Tachycardia was induced easily on isuprel with S1,S2 and S3 which shows TCL 208ms and very short septal VA time. Diagnosis typical AVNRT. Ablation was performed just outside the CS ostium. Low voltage area were tagged with Carto just below the His signal. We then chose areas that have atrial to ventricular ratio 1:5. Ablation resulted in significant junctional beats. Post ablation - no further induction. On isuprel 2mcg/min, S1, S2, S3 resulted in one echo. The patienttolerated the procedurewell and did not have any complication. The patientleft the lab in sinus rhythm. Total ablation time was 290 seconds. MEASUREMENTS/EP STUDY: AA interval 589 ms, AH 79 ms, HV 50 ms, MI 131 ms, QRS 72ms, QT 266 ms, RR 587 ms, AV wenkebach at CL 280 ms, Retrograde wenkebach at 300ms, Atrial ERP 600/240ms, Ventricular ERP 600/230ms, Atrial ERP on Isuprel 500/220ms. Concentric atrial activation on RV pacing. PLAN: The patient will be observed overnight and will be discharged home tomorrow with precise followup instructions. Pebbles Rodriguez MD, [facility] Cardiac Electrophysiology Chilo RODRIGUEZ MD Jan 09, 2020 15:25
[2020-01-09] MEDS ORDERED: PATIENT MAY USE OWN MEDS, ALL PO SCH (15:30)
[2020-01-09] MEDS ORDERED: ONDANSETRON 4 MG/2 ML (SDV) Z0FRAN IVP PRN (15:30)
[2020-01-09] MEDS ORDERED: amLODIPine 5 MG (NORVASC) TAB ONE (16:37)
[2020-01-09] MEDS: morphine INJ 10 MG/ML 1ML (SYR OR VIAL) IVP NR ×2 (16:50→16:54)
[2020-01-09] MEDS ORDERED: amLODIPine 5 MG (NORVASC) TAB PO ONE (17:00)
[2020-01-09] MEDS: NS IV 1000 ML 1,000 ML IV SCH (17:05)
[2020-01-09] MEDS ORDERED: ACETAMINOPHEN 500 MG TAB (TYLENOL) ONE (18:38)
[2020-01-09] MEDS ORDERED: ACETAMINOPHEN 500 MG TAB (TYLENOL) PO PRN (18:45)
[2020-01-10] VITALS: BP 159/100
[2020-01-10 03:36] LABS: HEMOGLOBIN 13.4 G/DL (13.3-17.7); MEAN PLATELET VOLUME 10.2 FL (7.4-10.4); RED CELL DISTRIBUTION WIDTH 12.5 % (10.0-14.5); WHITE BLOOD COUNT 7.7 10^3/uL (4.3-11.0)
[2020-01-10 03:56] LABS: BUN/CREATININE RATIO 9; CALCIUM 8.4 MG/DL (8.5-10.1); CARBON DIOXIDE 24 MMOL/L (21-32); CHLORIDE 105 MMOL/L (98-107); CREATININE SERUM 0.85 MG/DL (0.60-1.30); GFR ESTIMATED > 60; GLUCOSE 84 MG/DL (70-105); POTASSIUM 3.2 MMOL/L (3.6-5.0); SODIUM 141 MMOL/L (135-145)
[2020-01-10] MEDS: NS IV 1000 ML 1,000 ML IV SCH (04:46)
[2020-01-10 06:13] VITALS: BP 150/100
--- NOTE | 2020-01-10 07:15 | Anesthesia-General Post-Op ---
General Patient Condition Mental Status/LOC: Same as Preop Cardiovascular: Satisfactory Nausea/Vomiting: Absent Respiratory: Satisfactory Pain: Controlled Complications: Absent Post Op Complications Complications None Follow Up Care/Instructions Patient Instructions None needed. Anesthesia/Patient Condition Patient Condition Patient is doing well, no complaints, stable vital signs, no apparent adverse anesthesia problems. No complications reported per nursing. ILAN ONEAL CRNA Jan 10, 2020 07:15
[2020-01-10 08:00] VITALS: BP 151/101
--- NOTE | 2020-01-10 08:37 | Cardiology Discharge Summary ---
Discharge Summary Hospital Course Problems Reviewed?: Yes Problems/Diagnosis: (1) PSVT (paroxysmal supraventricular tachycardia) Status: Resolved Resolution Date/Time: 01/10/20 @ 09:01 Assessment & Plan: Paroxysmal supraventricular tachycardia, AVNRT, successful slow pathway ablation on 01/09/2020. Patient has history of paroxysmal atrial fibrillation and will continue oral anticoagulation. Hospital Course Date of Admission: Admission Diagnosis : Family Physician/Provider: No,Local Physician Date of Discharge: 01/10/20 Discharge Diagnosis: [ ] Hospital Course: Mr. Hernandez was admitted to the hospital due to post surgical typical atrial flutter ablation on 01/09/2020 and will be discharged today 01/10/2020. While at [facility] he was under the care of Dr. Rodriguez Cardiology. Surgical indications included typical atrial flutter. He underwent a comprehensive EP study, fluoroscopy, CS pacing, comprehensive 3D mapping with carto system, and CTI ablation. The patient had no procedural complication and is recovering well. He denies chest pain, SOB, N/V, feeling of fever or chills at this time. Has minor groin tenderness around femoral access points. No hematoma or infection noticed. EKG and heart monitoring have been sinus rhythm with no aberration since ablation. He currently has no questions or concerns and will be discharged today in stable condition. Please follow all discharge instructions outlined in pack et. The following information is only a summary of the patients admission while at [facility] and is not all inclusive. Please review entire chart for more information. Labs and Pending Lab Test: Laboratory Tests 01/09/20 09:34: White Blood Count 8.1, Red Blood Count 5.07, Hemoglobin 14.8, Hematocrit 44, Mean Corpuscular Volume 86, Mean Corpuscular Hemoglobin 29, Mean Corpuscular Hemoglobin Concent 34, Red Cell Distribution Width 12.8, Platelet Count 268, Mean Platelet Volume 9.9, Prothrombin Time 12.7, INR Comment 0.9, Activated Partial Thromboplast Time 32, Sodium Level 142, Potassium Level 3.4L, Chloride Level 103, Carbon Dioxide Level 29, Anion Gap 10, Blood Urea Nitrogen 10, Creat inine 0.99, Estimat Glomerular Filtration Rate > 60, BUN/Creatinine Ratio 10, Glucose Level 88, Calcium Level 9.2, Corrected Calcium 8.8, Total Bilirubin 1.1H , Aspartate Amino Transf (AST/SGOT) 24, Alanine Aminotransferase (ALT/SGPT) 47, Alkaline Phosphatase 92, Total Protein 7.0, Albumin 4.5 01/10/20 02:30: White Blood Count 7.7, Red Blood Count 4.52, Hemoglobin 13.4, Hematocrit 39L, Mean Corpuscular Volume 87, Mean Corpuscular Hemoglobin 30, Mean Corpuscular Hemoglobin Concent 34, Red Cell Distribution Width 12.5, Platelet Count 254, Mean Platelet Volume 10.2, Sodium Level 141, Potassium Level 3.2L, Chloride Level 105, Carbon Dioxide Level 24, Anion Gap 12, Blood Urea Nitrogen 8, Creatinine 0.85, Estimat Glomerular Filtration Rate > 60, BUN/Creatinine Ratio 9, Glucose Level 84, Calcium Level 8.4L Home Meds Active Diltiazem 24Hr Cd (Diltiazem HCl) 120 Mg Cap.er.24h 120 Mg PO DAILY Eliquis (Apixaban) 5 Mg Tablet 5 Mg PO BID Reported [Astragalus] 2,000 Mg PO BID Zyrtec (Cetirizine HCl) 10 Mg Capsule 10 Mg PO DAILY PRN Norvasc (Amlodipine Besylate) 5 Mg Tablet 5 Mg PO DAILY Flomax (Tamsulosin HCl) 0.4 Mg Cap 0.4 Mg PO DAILY Buspirone HCl 7.5 Mg Tablet 22.5 Mg PO TAKES 3 PILLS TWICE DAILY [Mtv W/Probiotic] 1 Tab PO BID Vitamin D3 (Cholecalciferol (Vitamin D3)) 10,000 Unit Capsule 10,000 Unit PO HS Duloxetine HCl 30 Mg Capsule.dr 30 Mg PO BID . Assessment/Pt DC Instructions Discharge instructions discussed at length with the patient and family. Disch arge took over 30 minutes to complete. Patient will continue oral anticoagulation therapy. Patient will follow-up with Dr. Rodriguez in 4 weeks. Discharge Diet: No Restrictions Activity as Tolerated: Yes Discharge Physical Examination Allergies: Uncoded Allergies: NSAIDS (Adverse Reaction, Unknown, 01/26/19) Pt reports being unable to take due to gastric bypass surgery General Appearance: No Apparent Distress, WD/WN HEENT: Moist Mucous Membranes; No Photophobia Respiratory: Chest Non Tender, Lungs Clear, Normal Breath Sounds, No Accessory Muscle Use, No Respiratory Distress; No Rhonci, No Stridor, No Wheezing Cardiovascular: Regular Rate, Rhythm, No Edema, No Murmur, Normal Peripheral Pulses Gastrointestinal: Non Tender, Soft; No Distended, No Guarding Extremity: Normal Capillary Refill, No Calf Tenderness Skin: Normal Color, Warm/Dry Neurologic/Psychiatric: Alert, Oriented x3, No Motor/Sensory Deficits, Normal Mood/Affect Supervisory-Addendum Brief Verification & Attestation Participated in pt care: history, MDM, physical Personally performed: exam, history, MDM, supervision of care Care discussed with: Medical Student Procedures: n/a Results interpretation: Verified all documentation Verification and Attestation of Medical Student E/M Service A medical student performed and documented this service in my presence. I reviewed and verified all information documented by the medical student and made modifications to such information, when appropriate. I personally performed the physical exam and medical decision making. Chilo Rodriguez, Jan 10, 2020,09:01 DEDRA GAO [facility] Jan 10, 2020 08:16 Chilo RODRIGUEZ MD Jan 10, 2020 09:03
--- NOTE | 2020-01-10 10:10 | NUR ---
Pt given discharge instructions at this time per Dr. Rodriguez. Pt verbalized understanding. VSS. No questions at this time. Personal belongings with pt at this time. also at bedside at this time. This RN escorted pt via wheelchair to personal car.
== END 2020-01-10 10:16 | disposition home or self-care (01) ==
LOC: CATH 09:10 → ICU 16:17 → CATH 01-10 10:16
PROVIDERS: ATTEND Internal Medicine Interventional Cardiology
DX: I47.1 Supraventricular tachycardia (principal); I10 Essential (primary) hypertension; I48.0 Paroxysmal atrial fibrillation; G47.33 Obstructive sleep apnea (adult) (pediatric); E66.9 Obesity, unspecified; Z79.899 Other long term (current) drug therapy; Z88.6 Allergy status to analgesic agent; Z68.34 Body mass index [BMI] 34.0-34.9, adult; Z90.89 Acquired absence of other organs; Z80.9 Family history of malignant neoplasm, unspecified; Z83.3 Family history of diabetes mellitus
CPT/HCPCS: 36415; 80048; 80053; 85027; 85610; 85730; 87081; 93005; 93613; 93623; 93653

== ENCOUNTER 2020-01-16 09:45 | Emergency (ER) | payer BC, OTHER ==
[~2020-01-16] VITALS: Ht 182.8 cm; Wt 113.3 kg
[~2020-01-16 09:45] MED LIST changes: +AMLO5TAB4 PO; +ASTRAGALUS PO; +CETI10CA PO; +TMSL.4C PO
--- NOTE | 2020-01-16 10:39 | ED Lower Extremity ---
General Chief Complaint: Lower Extremity Stated Complaint: LEFT LEG PAIN Nursing Triage Note: Pt ambulatory to triage. Pt reports having an ablation last Thursday by Dr. Rodriguez. Pt reports knot in Lleg since Thursday. Pt c/o pain, swelling, muscle spasms. Pt reports pain radiates into hip and back. Pt reports bruising is "moving around." Pt was seen by PCP today. PCP called Dr. Rodriguez and pt was sent to ED. Nursing Sepsis Screen: No Definite Risk Source: patient Exam Limitations: no limitations History of Present Illness Date Seen by Provider: Jan 16, 2020 Time Seen by Provider: 10:37 Initial Comments Patient had a heart catheter on 01/09/20 for ablation of SVT. Access was through left femoral vein. He now has bruising to the medial left thigh extending down behind the left knee which is painful causing him cramps. Onset: just prior to arrival Severity: moderate Pain/Injury Location: left hip Method of Injury: unknown Allergies and Home Medications Allergies Uncoded Allergies: NSAIDS (Adverse Reaction, Unknown, 01/26/19) Pt reports being unable to take due to gastric bypass surgery Home Medications Amlodipine Besylate 5 Mg Tablet, 5 MG PO DAILY, (Reported) Apixaban 5 Mg Tablet, 5 MG PO BID Prescribed by: RAY DURON on 01/27/19 1304 Cetirizine HCl 10 Mg Capsule, 10 MG PO DAILY PRN for CONGESTION, (Reported) Cholecalciferol (Vitamin D3) 10,000 Unit Capsule, 10,000 UNIT PO HS, (Reported) Diltiazem HCl 120 Mg Cap.er.24h, 120 MG PO DAILY Prescribed by: RAY DURON on 01/27/19 1304 Duloxetine HCl 30 Mg Capsule.dr, 30 MG PO BID, (Reported) Tamsulosin HCl 0.4 Mg Cap, 0.4 MG PO DAILY, (Reported) [Astragalus] , 2,000 MG PO BID, (Reported) [Mtv W/Probiotic] , 1 TAB PO BID, (Reported) Patient Home Medication List Home Medication List Reviewed: Yes Review of Systems Constitutional: see HPI EENTM: see HPI Respiratory: no symptoms reported Cardiovascular: no symptoms reported Genitourinary: no symptoms reported Musculoskeletal: see HPI Skin: no symptoms reported, see HPI Psychiatric/Neurological: No Symptoms Reported Past [id number] Hx Patient Social History Alcohol Use: Occasionally Uses Number of Drinks Today: GG Alcohol Beverage of Choice: Whiskey Recreational Drug Use: No 2nd Hand Smoke Exposure: No Recent Foreign Travel: No Contact w/Someone Who Travel: No Recent Infectious Disease Expo: No Recent Hopitalizations: No Immunizations Up To Date Tetanus Booster (TDap): More than 5yrs Date of Influenza Vaccine: Aug 16, 2019 Seasonal Allergies Seasonal Allergies: No Past Medical History Surgeries: Yes (knee, gastric bypass, ablation) Abdominal, Cardiac, Orthopedic, Tonsillectomy Respiratory: No Sleep Apnea Currently Using CPAP: Yes Cardiac: Yes (PSVT, ablation) Atrial Fibrillation, Hypertension, Palpitations Neurological: No Reproductive Disorders: No Genitourinary: No Gastrointestinal: Yes (gastric bypass) Musculoskeletal: No Endocrine: No HEENT: No Cancer: No Psychosocial: Yes Anxiety, Depression Integumentary: No Blood Disorders: No Adverse Reaction/Blood Tranf: No Family Medical History Cardiovascular disease 19 MOTHER grandfather Diabetes mellitus 19 MOTHER Heart Disease Physical Exam Vital Signs Vital Signs - First Documented 01/16/20 09:55 Temp 36.6 Pulse 79 Resp 15 B/P (MAP) 160/103 (122) Pulse Ox 99 O2 Delivery Room Air Capillary Refill : Less Than 3 Seconds Height, Weight, BMI Height: 5'11.00" Weight: 250lbs. 0.0oz. [id number]; 33.00 BMI Method:Stated General Appearance: WD/WN, no apparent distress HEENT: PERRL/EOMI, normal ENT inspection Respiratory: no respiratory distress, no accessory muscle use Hips: bilateral hip non-tender, bilateral hip normal inspection, bilateral hip normal range of motion Legs: left leg other (bruising to the medial aspect left groin that extends down and terminates behind the left knee.) Knees: bilateral knee non-tender, bilateral knee normal inspection, bilateral knee normal range of motion Ankles: bilateral ankle non-tender, bilateral ankle normal inspection, bilat eral ankle normal range of motion Feet: bilateral foot non-tender, bilateral foot normal inspection, bilateral foot normal range of motion Neurologic/Psychiatric: alert, normal mood/affect, oriented x 3 Skin: normal color, warm/dry Progress/Results/Core Measures Results/Orders Lab Results Laboratory Tests Test 01/16/20 10:58 Range/Units White Blood Count 6.3 4.3-11.0 10^3/uL Red Blood Count 3.65 L 4.35-5.85 10^6/uL Hemoglobin 10.9 L 13.3-17.7 G/DL Hematocrit 32 L 40-54 % Mean Corpuscular Volume 88 80-99 FL Mean Corpuscular Hemoglobin 30 25-34 PG Mean Corpuscular Hemoglobin Concent 34 32-36 G/DL Red Cell Distribution Width 12.7 10.0-14.5 % Platelet Count 368 130-400 10^3/uL Mean Platelet Volume 9.3 7.4-10.4 FL Neutrophils (%) (Auto) 69 42-75 % Lymphocytes (%) (Auto) 21 12-44 % Monocytes (%) (Auto) 8 0-12 % Eosinophils (%) (Auto) 2 0-10 % Basophils (%) (Auto) 1 0-10 % Neutrophils # (Auto) 4.3 1.8-7.8 X 10^3 Lymphocytes # (Auto) 1.3 1.0-4.0 X 10^3 Monocytes # (Auto) 0.5 0.0-1.0 X 10^3 Eosinophils # (Auto) 0.1 0.0-0.3 10^3/uL Basophils # (Auto) 0.0 0.0-0.1 10^3/uL My Orders Orders - ARON KUMARI APRN Us Left Low Ext Arterial [id number] (01/16/20 10:33) Cbc With Automated Diff (01/16/20 10:33) Us Soft Tissue Unlisted [id number] (01/16/20 10:35) Hydrocodone/Apap 5/325 Tablet (Lortab 5 (01/16/20 10:45) Medications Given in ED Current Medications Medications Dose Ordered Sig/Manoj Route Start Time Stop Time Status Last Admin Dose Admin Acetaminophen/ Hydrocodone Bitart 1 tab ONCE ONCE PO 01/16/20 10:45 01/16/20 10:46 DC 01/16/20 10:54 1 TAB Vital Signs/I&O 01/16/20 09:55 Temp 36.6 Pulse 79 Resp 15 B/P (MAP) 160/103 (122) Pulse Ox 99 O2 Delivery Room Air Blood Pressure Mean: 122 Departure Impression Primary Impression: Hematoma of left thigh Qualified Codes: S70.12XA - Contusion of left thigh, initial encounter Disposition: 01 HOME, SELF-CARE Condition: Stable Departure-Patient Inst. Decision time for Depature: 11:12 Referrals: NO,LOCAL PHYSICIAN (PCP) Primary Care Physician Patient Instructions: HEMATOMA Add. Discharge Instructions: 1. Your hemoglobin was 10.9 today, lower than it was on the when it was 14.8. It is not low enough that we need to transfuse, but does warrant follow-up blood work this week to recheck. Take pain medication as directed. All discharge instructions reviewed with patient and/or family. Voiced under standing. Scripts Hydrocodone/Acetaminophen ([place] 5-325 Tablet) 1 Each Tablet 1 TAB PO Q4-6HR for Pain MDD 10 TABS for 7 Days, #20 TAB Prov: ARON UKMARI APRN 01/16/20 ARON KUMARI APRN Jan 16, 2020 10:39
[2020-01-16] MEDS ORDERED: HYDROcodone/APAP 5 MG/325 MG (LORTAB) TAB PO ONE (10:45)
[2020-01-16 11:05] LABS: BASOPHILS % (AUTO) 1 % (0-10); EOSINOPHILS # (AUTO) 0.1 10^3/uL (0.0-0.3); EOSINOPHILS % (AUTO) 2 % (0-10); HEMATOCRIT 32 % (40-54); HEMOGLOBIN 10.9 G/DL (13.3-17.7); LYMPHOCYTES # (AUTO) 1.3 X 10^3 (1.0-4.0); LYMPHOCYTES % (AUTO) 21 % (12-44); MEAN CORPUSCULAR HEMOGLOBIN 30 PG (25-34); MEAN CORPUSCULAR HGB CONC 34 G/DL (32-36); MEAN CORPUSCULAR VOLUME 88 FL (80-99); MEAN PLATELET VOLUME 9.3 FL (7.4-10.4); MONOCYTES # (AUTO) 0.5 X 10^3 (0.0-1.0); MONOCYTES % (AUTO) 8 % (0-12); NEUTROPHILS # (AUTO) 4.3 X 10^3 (1.8-7.8); NEUTROPHILS % (AUTO) 69 % (42-75); PLATELET COUNT 368 10^3/uL (130-400); RED CELL DISTRIBUTION WIDTH 12.7 % (10.0-14.5); WHITE BLOOD COUNT 6.3 10^3/uL (4.3-11.0)
[2020-01-16] MEDS ORDERED: HYDR-4226 PO (11:16)
--- NOTE | 2020-01-16 12:25 | Diagnostic Imaging Report ---
INDICATION: Left groin pain. History of heart catheter 01/09/2020. FINDINGS: Color Doppler imaging shows normal flow throughout the common femoral artery and vein. There is no evidence of pseudoaneurysm. There is demonstrated a small AV fistula within the common femoral vein and artery. 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 No evidence of pseudoaneurysm. Dictated by: Dictated on workstation # [id number]
[2020-01-16 12:29] VITALS: BP 150/90
== END 2020-01-16 12:30 | disposition home or self-care (01) ==
LOC: EDUNIT# 09:45 → ER 09:46
DX: S70.12XA Contusion of left thigh, initial encounter (principal); I10 Essential (primary) hypertension; I48.91 Unspecified atrial fibrillation; F41.9 Anxiety disorder, unspecified; F32.9 Major depressive disorder, single episode, unspecified; Z95.9 Presence of cardiac and vascular implant and graft, unspecified; Z88.6 Allergy status to analgesic agent; Z79.01 Long term (current) use of anticoagulants; Z82.49 Family history of ischemic heart disease and other diseases of the circulatory system
CPT/HCPCS: 36415; 85025; 93926